=== PATIENT | female | born 1955 | race Caucasian/White ===

== ENCOUNTER 2019-05-27 19:47 | Emergency (ER) | payer MEDICARE, OTHER ==
--- NOTE | 2019-05-27 20:12 | RAD ---
EXAM: Ankle,Left 3 Views CLINICAL INDICATION: 63-year-old female status post fall with LEFT ankle deformity and pain. TECHNIQUE: Three views LEFT ankle were obtained in AP, lateral and oblique projections. COMPARISON: None. FINDINGS: Fracture of the medial malleolus with approximately 7 mm of displacement of the distal fracture fragment. Tibiotalar widening of approximately 12 mm compatible with tibiotalar dislocation. Comminuted oblique fracture of the lateral malleolus. The proximal fracture component is displaced medially by approximately one shaft width. Small fragment is present at the level of the tibiotalar joint space laterally measuring 4 mm. Soft tissue swelling surrounds the ankle. Possible air lucency within the posterior soft tissues raising the possibility of associated laceration. Bulky plantar heel spur. Bipartite os peroneum. IMPRESSION: Fracture of the medial and lateral malleolus with tibiotalar dislocation as detailed above. Electronically signed by: Desi Guerra MD 05/27/2019 8:11 PM [facility]
[2019-05-27 20:21] VITALS: TEMP 97.3
[2019-05-27] MEDS ORDERED: ceFAZolin SODIUM 1 GM VIAL ONE (20:49)
[2019-05-27] MEDS ORDERED: SODIUM CHLORIDE 0.9% 100ML 100 ML IVPB ONE (20:49)
[2019-05-27] MEDS: ceFAZolin SODIUM 2 GM in SODIUM CHLORIDE 0.9% 100ML 100 ML IVPB ONE (20:50)
[2019-05-27] MEDS: SODIUM CHLORIDE 0.9% (FLUSH) 10 ML SYG IV PRN (20:51)
[2019-05-27] MEDS: ONDANSETRON INJ 4 MG/2 ML VIAL IV ONE ×2 (20:51→22:51)
[2019-05-27] MEDS: HYDROmorphone HCL INJ 2 MG/ML VIAL IV ONE (21:00)
--- NOTE | 2019-05-27 21:19 | RAD ---
EXAM DESCRIPTION: XR Chest,1 View CLINICAL HISTORY: nausea TECHNIQUE: Single frontal view of the chest is submitted. COMPARISON: None available for comparison FINDINGS: Heart: The cardiothoracic silhouette is within normal limits. Lungs: Hyperinflation. No focal consolidation. Mediastinum: Unremarkable Pleura: No appreciable effusion. No pneumothorax. Bones: Intact Upper abdomen: Unremarkable IMPRESSION: No acute disease. Electronically signed by: Miri Neal MD 05/27/2019 9:18 PM [employer] [employer]
--- NOTE | 2019-05-27 21:46 | ED.PDOC ---
History of Present Illness - General Chief Complaint: Lower Extremity Injury Stated Complaint: left ankle injury Time Seen by Provider: 05/27/19 19:53 Source: patient, RN notes reviewed, Vital Signs reviewed, family - Exam Limitations: no limitations - History of Present Illness Initial Comments: Patient is a 63-year-old white female who was coming down the stairs at home when she tripped and twisted her ankle and fell 1 step to the floor. She had immediate onset of ankle pain but did walk back upstairs. The pain started getting worse so she came into the ER for further evaluation and treatment. Patient complains of left ankle pain. It is worse with movement or palpation. There is a laceration on the medial aspect of the left ankle. She had ankle deformity with reduced DP pulse. The ankle fracture was manually reduced with traction and realigned with improvement of the pulse and cap refill in the foot. The pain is throbbing in nature. It is moderate in severity. The pain is markedly improved when the ankle is held in alignment. Occurred: this evening Pain - Lower Extremity: moderate: Left Ankle Method of Injury: fell Improving Factors: immobilization Worsening Factors: movement Allergies/Adverse Reactions: Allergies NO KNOWN ALLERGY Allergy (Verified 05/27/19 21:00) Review of Systems - Review of Systems Constitutional: States: no symptoms reported, see HPI EENTM: States: no symptoms reported Respiratory: States: no symptoms reported Cardiology: States: no symptoms reported Gastrointestinal/Abdominal: States: no symptoms reported Genitourinary: States: no symptoms reported Musculoskeletal: States: joint swelling - Left ankle Skin: States: other - Laceration of left medial ankle Neurological: States: no symptoms reported. Denies: numbness, paresthesia, tingling Endocrine: States: no symptoms reported Hematologic/Lymphatic: States: no symptoms reported All other Systems: Reviewed and Negative Past Medical History (General) - Patient Medical History Hx Seizures: No Hx Stroke: No Hx Dementia: No Hx Asthma: No Hx of COPD: No Hx Cardiac Disorders: No Hx Congestive Heart Failure: No Hx Pacemaker: No Hx Hypertension: Yes Hx Thyroid Disease: No Hx Diabetes: No Hx Gastroesophageal Reflux: No Hx Renal Disease: No Hx Cancer: No Hx of HIV: No Hx Hepatitis C: No Hx MRSA: No Surgical History: no surgical history - Vaccination History Hx Tetanus, Diphtheria Vaccination: No Hx Influenza Vaccination: No Hx Pneumococcal Vaccination: No - Social History Hx Tobacco Use: No Hx Chewing Tobacco Use: No Hx Alcohol Use: Yes Hx Substance Use: No Hx Substance Use Treatment: No Hx Depression: No Feels Threatened In Home Enviroment: No Feels Threatened In a Relationship: No Hx Physical Abuse: No Hx Emotional Abuse: No Hx Suspected Abuse: No - Female History Patient is a Female of Child Bearing Age (10 -59 yrs old): No Family Medical History - Family History Mother Family History: Unknown Physical Exam - Physical Exam General Appearance: Alert, Comfortable, Well Developed, Well Groomed, Well Nourished Eyes, Ears, Nose, Throat: PERRL/EOMI, normal ENT inspection, pharynx normal Neck: non-tender, full range of motion, supple, normal inspection Cardiovascular/Respiratory: regular rate, rhythm, no M/R/G, normal peripheral pulses, no JVD, normal breath sounds, no respiratory distress Gastrointestinal/Abdominal: non-tender, no organomegaly Back: normal inspection, no CVA tenderness, no vertebral tenderness Thigh/Hip: normal inspection, non-tender, no evidence of injury Leg: normal inspection, non-tender, no evidence of injury, normal ROM Knee: normal inspection, non-tender, no evidence of injury, normal ROM Ankle: deformity - Left ankle. The ankle mortise is unstable., limited ROM, pain Foot: normal inspection, non-tender, no evidence of injury, other - Cap refill less than 2 seconds. Neuro/Tendon: normal sensation, normal motor functions, normal tendon functions, responds to pain, no evidence tendon injury Mental Status: alert, oriented x 3 Skin: normal color, warm/dry Progress - Progress Progress: Differential diagnosis: Ankle fracture, ankle sprain, bimalleolar fracture of the ankle, Achilles tendon rupture among others. 05/27/19 21:50 Patient is resting comfortably after the ankle was reduced and splinted. She has good cap refill. I have spoken with Dr. EZEQUIEL ENCARNACION patient is resting comfortably after the ankle was reduced and splinted. She has good cap refill and good sensation in the foot. The patient tolerated the procedure well. I spoke with Dr. Fox and he accepts the patient in transfer for consult. I spoke with Dr. Hunt who accepts the patient to the ER. Patient to be t ransferred to [facility] for operative repair of the ankle. I discussed this plan of care with the patient and her and they voiced understanding and agreement. Semaj Eckert M.D. #[id number] - Results/Orders Results/Orders: EXAM: Ankle,Left 3 Views CLINICAL INDICATION: 63-year-old female status post fall with LEFT ankle deformity and pain. TECHNIQUE: Three views LEFT ankle were obtained in AP, lateral and oblique projections. COMPARISON: None. FINDINGS: Fracture of the medial malleolus with approximately 7 mm of displacem ent of the distal fracture fragment. Tibiotalar widening of approximately 12 mm compatible with tibiotalar dislocation. Comminuted oblique fracture of the lateral malleolus. The proximal fracture component is displaced medially by approximately one shaft width. Small fragment is present at the level of the tibiotalar joint space laterally measuring 4 mm. Soft tissue swelling surrounds the ankle. Possible air lucency within the posterior soft tissues raising the possibility of associated laceration. Bulky plantar heel spur. Bipartite os peroneum. IMPRESSION: Fracture of the medial and lateral malleolus with tibiotalar dislocation as detailed above. Electronically signed by: Desi Guerra MD 05/27/2019 8:11 PM [facility] EXAM DESCRIPTION: XR Chest,1 View CLINICAL HISTORY: nausea TECHNIQUE: Single frontal view of the chest is submitted. COMPARISON: None available for comparison FINDINGS: Heart: The cardiothoracic silhouette is within normal limits. Lungs: Hyperinflation. No focal consolidation. Mediastinum: Unremarkable Pleura: No appreciable effusion. No pneumothorax. Bones: Intact Upper abdomen: Unremarkable IMPRESSION: No acute disease. Electronically signed by: Miri Neal MD 05/27/2019 9:18 PM [facility] 05/27/19 20:34 IV Care:Saline Lock per Protoc QSHIFT Sodium Chloride 0.9% (Flush) [Saline Flush Syringe] 10 ml IV PRN PRN EKG Assessment ONCE 05/27/19 20:45 EKG STAT Laboratory Results - last 24 hr 05/27/19 05/27/19 19:52 19:52 WBC 10.8 RBC 4.23 Hgb 13.0 Hct 38.8 MCV 91.6 MCH 30.7 MCHC 33.5 RDW 13.7 Plt Count 405 H MPV 7.2 L Absolute Neuts (auto) 5.80 Absolute Lymphs (auto) 4.20 H Absolute Monos (auto) 0.50 Absolute Eos (auto) 0.10 Absolute Basos (auto) 0.10 Neutrophils % 54.2 Lymphocytes % 39.2 Monocytes % 4.7 Eosinophils % 1.3 Basophils % 0.6 Sodium 139 Potassium 3.3 L Chloride 100 L Carbon Dioxide 24 Anion Gap 18.3 H BUN 23 H Creatinine 0.67 BUN/Creatinine Ratio 34.3 H Random Glucose 137 H Serum Osmolality 283.4 Calcium 9.6 Total Bilirubin 0.4 Direct Bilirubin < 0.1 Indirect Bilirubin 0.3 AST 30 ALT 32 Alkaline Phosphatase 60 Serum Total Protein 8.5 H Albumin 4.9 Lipase 58 H EKG performed on 27 May 2019 at 2147 hrs.: Normal sinus rhythm at 86 bpm, normal axis deviation, no ST or T wave changes, normal EKG. Procedures - Splinting Ankle Hand-Made Type: orthoglass Splint: Posterior short leg splint Pre-Proc Neuro Vasc Exam: abnormal - Diminished DP pulse and cap refill greater than 4 seconds Post-Proc Neuro Vasc Exam: normal, changed from pre-exam Progress: Patient's medial ankle laceration was covered with Vaseline impregnated gauze and then bulky 4 x 4 dressings placed over this then the patient had cotton batting wrapped around the foot and ankle as well as lower leg and then a posterior Ortho-Glass splint was placed. Patient tolerated the procedure well. - Joint Reduction ankle Conscious Sedation: No Reduction Attempts: 1 Pre-Procedure NV Exam: Yes - Diminished cap refill and diminished DP pulse. Post Joint Reduction Film: joint reduced - Joint manually reduced and improve cap refill and DP pulse. Departure - Departure Clinical Impression: Laceration of ankle, left, Fracture due to fall Bimalleolar fracture of left ankle Qualifiers: Encounter type: initial encounter Fracture type: open Open fracture type: open type I or II Qualified Code(s): S82.842B - Displaced bimalleolar fracture of left lower leg, initial encounter for open fracture type I or II Open fracture of malleolus of left ankle Qualifiers: Encounter type: initial encounter Open fracture type: open type I or II Qualified Code(s): S82.892B - Other fracture of left lower leg, initial encounter for open fracture type I or II Fall Qualifiers: Encounter type: initial encounter Qualified Code(s): W19.XXXA - Unspecified fall, initial encounter Time of Disposition: 21:58 Disposition: Transfer to Hospital Condition: Good Departure Forms: ED Discharge - Pt. Copy, Patient Portal Self Enrollment Referrals: Quincy Bower MD [Primary Care Provider] - 1-2 Weeks Transfer to Outside Facility - Transfer Information Decision to Transfer Date: 05/27/19 Decision to Transfer Time: 21:00 Reason for Transfer: required specialist not available Accepting Facility: [facility]
[2019-05-27 22:07] VITALS: O2SAT 97
[2019-05-27 22:49] VITALS: BP 134/87
== END 2019-05-27 22:55 | disposition short-term general hospital (02) ==
LOC: ER 19:47
DX: S82.842B Displaced bimalleolar fracture of left lower leg, initial encounter for open fracture type I or II (principal); I10 Essential (primary) hypertension; W10.9XXA Fall (on) (from) unspecified stairs and steps, initial encounter; Y92.009 Unspecified place in unspecified non-institutional (private) residence as the place of occurrence of the external cause
CPT/HCPCS: 71045; 73610; 80048; 80076; 83690; 85025; 93005; J0690; J1170; J2405; J7050